=== PATIENT | female | born 2000 | race Caucasian/White ===

== ENCOUNTER 2022-07-14 01:20 | Day surgery (SDC) | payer OTHER, SELFPAY ==
[2022-07-04 11:41] VITALS: BMI 27.6
[2022-07-14 12:26] VITALS: BP 118/75; PULSE 95; RESP 16; TEMP 36.6; O2SAT 100
[2022-07-14] MEDS: LACTATED RINGERS 1,000 ML 150 ML IV CONT (12:48)
--- NOTE | 2022-07-14 12:52 | WPDANESEPPF ---
Anes - Initial Pre Proc Eval Procedure: Operation Date: 07/14/22 13:00 Proposed Procedures p Esophagogastroduodenoscopy - Lamont Davis MD Date/Time: 07/14/22 12:52 Surgeon: Lamont Davis MD Pre Op Diagnosis: chest pressure, bloating Patient Data Age: 22 Gender: F Height: 1.63 m Weight: 68.7 kg Last Vital Signs Temp 97.8 F 07/14/22 12:26 Pulse 95 07/14/22 12:26 Resp 16 07/14/22 12:26 BP 118/75 07/14/22 12:26 Pulse Ox 100 07/14/22 12:26 O2 Del Method Room Air 07/14/22 12:26 Allergies Allergy/AdvReac Type Severity Reaction Status Date / Time Penicillins Allergy Unknown Unknown Verified 07/14/22 12:25 Home Medications Medication Instructions Recorded Confirmed Type bupropion HCl 150 mg 24 hr tablet, 150 mg PO QAM 05/23/22 07/14/22 History extended release buspirone 5 mg tablet 5 mg PO BID 05/23/22 07/14/22 History cholecalciferol (vitamin D3) 25 25 mcg PO DAILY 05/23/22 07/14/22 History mcg (1,000 unit) capsule spironolactone 100 mg tablet 100 mg PO DAILY 05/23/22 07/14/22 History vortioxetine 20 mg tablet 20 mg PO DAILY 05/23/22 07/14/22 History (Trintellix) omeprazole 40 mg capsule,delayed 40 mg PO BID #60 caps 06/22/22 07/14/22 Rx release Patient hx anesthesia problems: none Family hx anesthesia problems: none Results Review: All pre-operative results and documents have been reviewed as part of the pre-operative evaluation. [facility], [facility] Social History Social History Smoking status: Never smoker Second hand tobacco smoke exposure: No Alcohol intake: never Substance use: never Substance use type: does not use Living arrangements: with family Gender identity (if verbalized by the patient): Female Anes - Eval Final PreProcedure Day of Procedure 07/14/22 12:52 Patient weight: normal Heart: regular rate and rhythm Lungs: clear to auscultation Airway: Mallampati scale class II Neurological: alert and oriented Last oral intake: >/= 8 hours ASA classification: II Emergent: no Anesthetic plan: proceed Anesthesia type and monitoring: general GIVS and standard monitoring Results Review: All pre-operative results and documents have been reviewed as part of the pre-operative evaluation. Informed Consent: The patient's anesthetic plan and its attendant risks and benefits were discussed with the patient/family/POA. Questions were solicited and answers provided to the satisfaction of the patient/family/POA.
--- NOTE | 2022-07-14 12:55 | PM.IMHP ---
H&P: HPI History of Present Illness Date/Time: 07/14/22 12:55 Chief Complaint: Chest pressure Narrative: This is a 22-year-old female patient presents with very atypical complaints of chest pressure that only improves on lying flat. It comes every day sometimes for brief intervals. Sometimes will last longer. Sometimes the pressure feels burning in nature. It does not relieve with antacids. She has had episodes for several years. On her own research she is concerned about throat spasms. She denies any dysphagia. Her family history is significant for ulcerative colitis and family is concerned about this as well. Patient denies any bleeding or weight loss. Review of Systems Review of Systems: Review of systems noncontributory. [facility] Social History Social History Smoking status: Never smoker Second hand tobacco smoke exposure: No Alcohol intake: never Substance use: never Substance use type: does not use Living arrangements: with family Gender identity (if verbalized by the patient): Female Meds Home Medications and Allergies Home Medications Medication Instructions Recorded Confirmed Type bupropion HCl 150 mg 24 hr tablet, 150 mg PO QAM 05/23/22 07/14/22 History extended release buspirone 5 mg tablet 5 mg PO BID 05/23/22 07/14/22 History cholecalciferol (vitamin D3) 25 25 mcg PO DAILY 05/23/22 07/14/22 History mcg (1,000 unit) capsule spironolactone 100 mg tablet 100 mg PO DAILY 05/23/22 07/14/22 History vortioxetine 20 mg tablet 20 mg PO DAILY 05/23/22 07/14/22 History (Trintellix) omeprazole 40 mg capsule,delayed 40 mg PO BID #60 caps 06/22/22 07/14/22 Rx release Allergies Allergy/AdvReac Type Severity Reaction Status Date / Time Penicillins Allergy Unknown Unknown Verified 07/14/22 12:25 Vital Signs Vital Signs - 24 hr 07/14/22 12:26 Temperature 97.8 F Pulse Rate 95 Respiratory Rate 16 Blood Pressure 118/75 Pulse Oximetry 100 Oxygen Delivery Room Air Exam Narrative: Physical exam reveals patient to be alert. Vital signs stable. HEENT exam unremarkable. Patient is anicteric. Lungs are clear. Heart without murmur. Abdomen bowel sounds present soft nontender with organomegaly. Assessment and Plan Assessment and plan (1) Atypical chest pain: Code(s): R07.89 - Other chest pain Status: Acute Assessment and Plan: Patient with complaints of atypical chest pain. Appears to be gaseous pressure plan is for EGD to assess more thoroughly. I would advise a trial of simethicone. Acid reduction may be of benefit but would be ancillary to this. If EGD not fruitful then consider ENT evaluation because of patient's concern over upper esophageal sphincter spasms. GE reflux appears unlikely an atypical with these complaints. There is does not appear to be correlating with inflammatory bowel disease. Anxiety control may be of additional benefit.
[2022-07-14 13:15] VITALS: BP 100/63; PULSE 72; RESP 18; O2SAT 100
[2022-07-14 13:25] VITALS: BP 99/65; PULSE 69; RESP 20; O2SAT 100
[2022-07-14 13:35] VITALS: BP 103/67; PULSE 62; RESP 20; O2SAT 100
== END 2022-07-14 13:43 | disposition home or self-care (01) ==
PROVIDERS: PCP Family Medicine; Visit Provider Internal Medicine Gastroenterology
PROC: 0DJ08ZZ Inspection of Upper Intestinal Tract, Via Natural or Artificial Opening Endoscopic (ICD-10-PCS; CPT 43235; principal; 2022-07-14 13:00)
DX: R07.89 Other chest pain (principal)
CPT/HCPCS: 43239; 87081; J2704; J7120

== ENCOUNTER 2022-08-01 07:47 | Outpatient (CLI) | payer OTHER, SELFPAY ==
--- NOTE | ~2022-08-01 | XR_ITS ---
EXAMINATION: XR UGIAC w barium swallow DATE: 08/01/2022 08:37 INDICATION: Other chest pain. Epigastric pressure. Heartburn. TECHNIQUE: The patient drank thick barium, gas-producing crystals, and thin barium. Fluoroscopy of th e esophagus, stomach, and proximal small bowel was performed. Fluoroscopy exposure time was 0.9 minut es. The total number of images was 269. Total dose-area product was 1.616 Gy-cm^2. COMPARISON: None. FINDINGS: There is no mass or stricture of the esophagus. Esophageal motility is normal. There is no hiatal hernia. The stomach and proximal small bowel show normal folding patterns. IMPRESSION: 1. Normal upper gastrointestinal series and esophagram. Reviewed, dictated and finalized at location A.
== END 2022-08-01 07:48 | disposition home or self-care (01) ==
PROVIDERS: PCP Family Medicine; Visit Provider Internal Medicine Gastroenterology
DX: R07.89 Other chest pain (principal)
CPT/HCPCS: 74246